=== PATIENT | female | born 1985 | race Two or more races ===

== ENCOUNTER → 2022-12-10 | Outpatient (CLI) | payer BC ==
[2022-12-10 10:44] LABS: Basophils # (auto) 0 10 ^3/uL (0-0.2); Basophils % (auto) 0.2 % (0.0-2.0); Eosinophils # (auto) 0.2 10 ^3/uL (0-0.8); Eosinophils % (auto) 2.2 % (0.0-7.0); Hematocrit 37.9 % (36.0-46.0); Lymphocytes # (auto) 2.7 10 ^3/uL (0.4-5.4); Lymphocytes % (auto) 35.2 % (10.0-50.0); Mean Corpuscular Hemoglobin 31.3 pg (28.0-32.0); Mean Corpuscular Hgb Conc. 34.3 g/dL (32.0-36.0); Mean Corpuscular Volume 91.1 fL (80.0-100.0); Monocytes # (auto) 0.6 10 ^3/uL (0-1.3); Monocytes % (auto) 8.4 % (0.0-12.0); Neutrophils # (auto) 4.1 10 ^3/uL (1.6-8.6); Red Blood Cells 4.15 10^6/uL (4.0-5.20); Red Cell Distribution Width 12.3 % (11.8-14.3); White Blood Cell 7.5 10^3/uL (4.4-10.8)
[2022-12-10 11:03] LABS: INR 1.05 (0.9-1.15); Partial Thromboplastin Time 28.5 SEC (24.5-34.5)
[2022-12-10 11:31] LABS: Alanine Aminotransferase 27 U/L (7-40); Albumin 4.5 g/dL (3.2-4.8); Alkaline Phosphatase 54 U/L (46-116); Aspartate Aminotransferase 16 U/L (13-40); BUN/Creatinine Ratio 8.2 (10.0-20.0); Bilirubin, Total 0.3 mg/dL (0.2-1.0); Blood Urea Nitrogen 5 mg/dL (9-23); Calcium 9.2 mg/dL (8.5-10.1); Chloride 107 mmol/L (98-107); Glucose 100 mg/dL (74-106); Potassium 3.9 mmol/L (3.5-5.1); Sodium 139 mmol/L (136-145); Total Protein 7.3 g/dL (5.7-8.2)
[2022-12-10 11:34] LABS: Thyroid Stimulating Hormone 1.4 uIU/mL (0.55-4.78)
[2022-12-10 12:05] LABS: Beta HCG, Quantitative 0.1 mIU/mL (1.5-4.2)
== END | disposition home or self-care (01) ==
LOC: LAB 10:13
PROVIDERS: ATTEND Obstetrics & Gynecology
DX: R87.1 Abnormal level of hormones in specimens from female genital organs (principal)
CPT/HCPCS: 36415; 80053; 83036; 84443; 84702; 85025; 85610; 85730

== ENCOUNTER → 2022-12-24 | Outpatient (CLI) | payer BC | END | disposition home or self-care (01) | LOC: LAB 09:45 | PROVIDERS: ATTEND Obstetrics & Gynecology | DX: N93.9 Abnormal uterine and vaginal bleeding, unspecified (principal) ==

== ENCOUNTER 2023-03-11 06:20 | Inpatient (IN) | payer BC ==
[2023-03-09 12:59] LABS: Basophils # (auto) 0 10 ^3/uL (0-0.2); Basophils % (auto) 0.2 % (0.0-2.0); Eosinophils # (auto) 0.1 10 ^3/uL (0-0.8); Eosinophils % (auto) 2.2 % (0.0-7.0); Hematocrit 38.2 % (36.0-46.0); Hemoglobin 12.7 g/dL (12.2-16.2); Lymphocytes # (auto) 2.4 10 ^3/uL (0.4-5.4); Lymphocytes % (auto) 34.2 % (10.0-50.0); Mean Corpuscular Hemoglobin 30.1 pg (28.0-32.0); Mean Corpuscular Hgb Conc. 33.3 g/dL (32.0-36.0); Mean Corpuscular Volume 90.3 fL (80.0-100.0); Monocytes # (auto) 0.5 10 ^3/uL (0-1.3); Monocytes % (auto) 7.1 % (0.0-12.0); Neutrophils # (auto) 3.9 10 ^3/uL (1.6-8.6); Neutrophils % (auto) 56.3 % (37.0-80.0); Red Blood Cells 4.23 10^6/uL (4.0-5.20); Red Cell Distribution Width 13.9 % (11.8-14.3); White Blood Cell 6.9 10^3/uL (4.4-10.8)
[2023-03-09 13:14] LABS: INR 1.04 (0.9-1.15); Partial Thromboplastin Time 28.9 SEC (24.5-34.5); Prothrombin Time 10.9 sec (9.3-11.8)
[2023-03-09 13:23] LABS: Urine Bacteria FEW /hpf (None Seen); Urine Blood TRACE /uL (Negative); Urine Clarity HAZY (Clear); Urine Color Yellow (Yellow); Urine Mucus FEW (None Seen); Urine Protein, UAD TRACE (Negative); Urine Specific Gravity 1.023 (1.001-1.035); Urine Urobilinogen Normal (Negative); Urine WBC 4 /hpf (0 - 5); Urine pH 6.5 (5.0-8.0)
[2023-03-09 14:18] LABS: Alanine Aminotransferase 19 U/L (7-40); Albumin 4.6 g/dL (3.2-4.8); Alkaline Phosphatase 57 U/L (46-116); Anion Gap 8 (5-15); Aspartate Aminotransferase 17 U/L (13-40); BUN/Creatinine Ratio 10.9 (10.0-20.0); Blood Urea Nitrogen 6 mg/dL (9-23); Calcium 8.9 mg/dL (8.7-10.4); Carbon Dioxide 21 mmol/L (20-30); Chloride 108 mmol/L (98-107); Potassium 3.6 mmol/L (3.5-5.1); Sodium 137 mmol/L (136-145)
[2023-03-09 14:19] LABS: Bilirubin, Total 0.3 mg/dL (0.2-1.0); Total Protein 7.4 g/dL (5.7-8.2)
[2023-03-09 14:24] LABS: Glucose 101 mg/dL (74-106)
[~2023-03-11] VITALS: Ht 149.9 cm; Wt 81.0 kg
[2023-03-11] MEDS ORDERED: LIDOCAINE 2% JELLY 11ml (GLYDO) ONE (06:51)
[2023-03-11] MEDS ORDERED: EPINEPHrine HCL 1 MG/1 ML AMP ONE (06:51)
[2023-03-11] MEDS ORDERED: BUPIVACAINE HCL 0 ML ONE (06:51)
[2023-03-11] MEDS ORDERED: ceFAZolin 2 GM/D5W100ml 100 ML IV ONE (06:51)
[2023-03-11] MEDS ORDERED: METHYLENE BLUE 0.5% 5MG/ML 10ml AMP IV ONE (06:55)
[2023-03-11] MEDS ORDERED: LIDOCAINE 1% HCL (LOCAL ANESTH.) INJ 20ML MDV ONE (06:55)
[2023-03-11] MEDS ORDERED: VASOPRESSIN 20 UNIT/ML ONE (06:56)
[2023-03-11] MEDS ORDERED: BUPIVACAINE HCL 50 ML ONE (06:56)
[2023-03-11] MEDS ORDERED: PROPOFOL 10 MG/ML 20 ML IV ONE (07:00)
[2023-03-11] MEDS ORDERED: ACETAMINOPHEN IV 1000 MG/100ML (10MG/ML) IV ONE (07:00)
[2023-03-11] MEDS ORDERED: LIDOCAINE 2% (LOCAL ANESTH.) PF 5ml SDV ONE (07:00)
[2023-03-11] MEDS ORDERED: GABAPENTIN 400 MG CAP PO ONE (07:00)
[2023-03-11] MEDS ORDERED: CELECOXIB 100 MG CAP PO ONE (07:00)
[2023-03-11] MEDS ORDERED: ONDANSETRON HCL 4 MG/2 ML VIAL ONE (07:00)
[2023-03-11] MEDS ORDERED: GLYCOPYRROLATE 0.2 MG/ML 1ML VIAL ONE (07:00)
[2023-03-11] MEDS ORDERED: DexAMETHasone SOD PHOS 10MG/1ML VIAL INJ ONE (07:01)
[2023-03-11] MEDS ORDERED: ROCURONIUM 10MG/ML 10ML VIAL IV ONE (07:01)
[2023-03-11] MEDS ORDERED: KETOROLAC TROMETH 30 MG/ML 1ML VIAL ONE (07:01)
[2023-03-11] MEDS ORDERED: SODIUM CHLORIDE LOCK 30 ML ONE (07:04)
[2023-03-11] MEDS ORDERED: LIDOCAINE W/ EPINEPHRINE 1% 20ML VIAL ONE (07:09)
[2023-03-11] MEDS ORDERED: NITROGLYCERIN 0.4 MG SL TAB SL PRN (07:15)
[2023-03-11] MEDS ORDERED: KETOROLAC TROMETH 30 MG/ML 1ML VIAL IV PRN (07:15)
[2023-03-11] MEDS ORDERED: MORPHINE SULFATE INJ 2 MG/ml SYRG IV PRN (07:15)
[2023-03-11] MEDS ORDERED: ceFAZolin 1GM/50ML 50 ML IV ONE (07:15)
[2023-03-11] MEDS ORDERED: HYDROmorphone HCL 2 MG/ML VL/or syr IV PRN (07:15)
[2023-03-11] MEDS ORDERED: ONDANSETRON HCL 4 MG/2 ML VIAL IV PRN ×2 (07:15→10:00)
[2023-03-11] MEDS ORDERED: fentaNYL CITRATE 100 MCG/2 ML VL ONE (07:24)
[2023-03-11] MEDS ORDERED: SUGAMMADEX 200mg/2ml Vial (100MG/ML) IV ONE (07:26)
[2023-03-11] MEDS ORDERED: SODIUM CHLORIDE LOCK 10 ML ONE ×2 (08:06→08:08)
[2023-03-11] MEDS ORDERED: PHENYLEPHRINE HCL 10 MG/ML VL ONE (08:06)
[2023-03-11 09:45] VITALS: O2SAT 100
[2023-03-11] MEDS ORDERED: FLUMAZENIL 0.1 MG/ML INJ 10ML MDV IV PRN (10:00)
[2023-03-11] MEDS ORDERED: oxyCODONE HCL 5MG TAB PO PRN (10:00)
[2023-03-11] MEDS ORDERED: LABETALOL HCL 5 MG/ML 4ML SYRINGE IV PRN (10:00)
[2023-03-11] MEDS ORDERED: NALOXONE HCL 0.4 MG/ML VIAL IV PRN (10:00)
[2023-03-11] MEDS ORDERED: ePHEDrine SULFATE 50 MG/ML AMP IV PRN (10:00)
[2023-03-11] MEDS ORDERED: hydrALAZINE HCL 20 MG/ML VL IV PRN (10:00)
[2023-03-11] MEDS ORDERED: fentaNYL CITRATE 100 MCG/2 ML VL IV PRN (10:00)
[2023-03-11] MEDS: HYDROmorphone HCL 2 MG/ML VL/or syr IV PRN ×4 (10:05→10:35)
[2023-03-11 12:54] VITALS: PULSE 73; RESP 18; O2SAT 96
[2023-03-11] MEDS: LACTATED RINGER'S 1,000 ML IV SCH ×2 (13:23→15:44)
[2023-03-11 16:00] VITALS: BP 112/66; PULSE 67; RESP 16; TEMP 97.8; O2SAT 94
[2023-03-11] MEDS: OXYCODONE W/ ACETAMINOPHEN 5/325MG TABLET PO PRN (17:02)
[2023-03-11 19:54] LABS: Basophils # (auto) 0 10 ^3/uL (0-0.2); Eosinophils # (auto) 0 10 ^3/uL (0-0.8); Hemoglobin 11.1 g/dL (12.2-16.2); Lymphocytes # (auto) 0.7 10 ^3/uL (0.4-5.4); Lymphocytes % (auto) 6.7 % (10.0-50.0); Mean Corpuscular Hemoglobin 29.6 pg (28.0-32.0); Mean Corpuscular Hgb Conc. 32.8 g/dL (32.0-36.0); Mean Corpuscular Volume 90.3 fL (80.0-100.0); Monocytes # (auto) 0.2 10 ^3/uL (0-1.3); Monocytes % (auto) 1.5 % (0.0-12.0); Neutrophils # (auto) 10.1 10 ^3/uL (1.6-8.6); Neutrophils % (auto) 91.8 % (37.0-80.0); Red Blood Cells 3.76 10^6/uL (4.0-5.20); Red Cell Distribution Width 14.1 % (11.8-14.3)
[2023-03-11 22:00] VITALS: BP 123/70; PULSE 74; RESP 18; TEMP 98.6; O2SAT 93
[2023-03-12] VITALS (7 sets, daily range): BP systolic 100–115; BP diastolic 38–74; PULSE 55–90; RESP 17–19; TEMP 97.9–98.6; O2SAT 91–98
[2023-03-12] MEDS: LACTATED RINGER'S 1,000 ML IV SCH ×4 (00:04→21:23)
[2023-03-12] MEDS: OXYCODONE W/ ACETAMINOPHEN 5/325MG TABLET PO PRN ×3 (00:06→21:40)
[2023-03-12 06:54] LABS: Basophils # (auto) 0 10 ^3/uL (0-0.2); Eosinophils # (auto) 0 10 ^3/uL (0-0.8); Hematocrit 31.2 % (36.0-46.0); Hemoglobin 10.3 g/dL (12.2-16.2); Lymphocytes % (auto) 8.5 % (10.0-50.0); Mean Corpuscular Hemoglobin 29.9 pg (28.0-32.0); Mean Corpuscular Hgb Conc. 33.1 g/dL (32.0-36.0); Mean Corpuscular Volume 90.5 fL (80.0-100.0); Monocytes # (auto) 0.7 10 ^3/uL (0-1.3); Monocytes % (auto) 6.5 % (0.0-12.0); Neutrophils # (auto) 9.7 10 ^3/uL (1.6-8.6); Red Blood Cells 3.45 10^6/uL (4.0-5.20); Red Cell Distribution Width 14.5 % (11.8-14.3); White Blood Cell 11.4 10^3/uL (4.4-10.8)
[2023-03-13 05:09] VITALS: BP 106/71; PULSE 77; RESP 18; TEMP 98.5; O2SAT 96
[2023-03-13] MEDS: LACTATED RINGER'S 1,000 ML IV SCH ×3 (07:15→21:47)
[2023-03-13 08:58] VITALS: BP 119/65; PULSE 64; RESP 18; TEMP 98.4; O2SAT 99
[2023-03-13] MEDS ORDERED: BISACODYL 10 MG RECT SUPP PR PRN (09:00)
[2023-03-13] MEDS: DOCUSATE SOD 100 MG CAP PO PRN ×2 (09:31→21:47)
[2023-03-13] MEDS: OXYCODONE W/ ACETAMINOPHEN 5/325MG TABLET PO PRN ×2 (09:34→18:35)
[2023-03-13 13:00] VITALS: BP 115/71; PULSE 85; RESP 14; TEMP 98; O2SAT 92
[2023-03-13 16:58] VITALS: BP 104/68; PULSE 81; RESP 16; TEMP 98.3; O2SAT 95
[2023-03-13 20:00] VITALS: PULSE 79; RESP 22; O2SAT 94
[2023-03-13 22:00] VITALS: BP 111/69; PULSE 79; RESP 22; TEMP 98.9; O2SAT 94
[2023-03-14 05:00] VITALS: BP 145/74; PULSE 66; RESP 20; TEMP 99; O2SAT 94
[2023-03-14] MEDS: LACTATED RINGER'S 1,000 ML IV SCH (05:55)
[2023-03-14] MEDS ORDERED: PERCOT PO (07:49)
[2023-03-14] MEDS ORDERED: DOCU-265 PO (07:49)
[2023-03-14] MEDS: OXYCODONE W/ ACETAMINOPHEN 5/325MG TABLET PO PRN (07:49)
[2023-03-14] MEDS ORDERED: IBUP-1455 PO (07:49)
[2023-03-14 08:32] VITALS: BP 115/76; PULSE 74; RESP 21; TEMP 97.9; O2SAT 98
[2023-03-14] MEDS: DOCUSATE SOD 100 MG CAP PO PRN (10:36)
[2023-03-14 11:05] LABS: Hemoglobin 10.3 g/dL (12.2-16.2)
[2023-03-14 12:48] VITALS: BP 111/69; PULSE 75; RESP 20; TEMP 97.8; O2SAT 94
== END 2023-03-14 14:05 | disposition home or self-care (01) | DRG 743 ==
LOC: SUR 06:20 → OVERFLOW 07:11 → EAST 12:45
PROVIDERS: ADMIT Internal Medicine; ATTEND Obstetrics & Gynecology
PROC: 0UT10ZZ Resection of Left Ovary, Open Approach (ICD-10-PCS; 2023-03-11)
PROC: 0UT50ZZ Resection of Right Fallopian Tube, Open Approach (ICD-10-PCS; 2023-03-11)
PROC: 0TJB8ZZ Inspection of Bladder, Via Natural or Artificial Opening Endoscopic (ICD-10-PCS; 2023-03-11)
PROC: 0UT60ZZ Resection of Left Fallopian Tube, Open Approach (ICD-10-PCS; 2023-03-11)
PROC: 0UT90ZZ Resection of Uterus, Open Approach (ICD-10-PCS; principal; 2023-03-11 07:34)
DX: D25.9 Leiomyoma of uterus, unspecified (principal); N83.202 Unspecified ovarian cyst, left side; N92.0 Excessive and frequent menstruation with regular cycle; Z90.49 Acquired absence of other specified parts of digestive tract
CPT/HCPCS: 36415; 80053; 81001; 81025; 84702; 85014; 85018; 85025; 85610; 85730; 86850; 86900; 86901; 97163; G0378; J0131; J0171; J1100; J1885; J2001; J2405; J2704; J3490

== ENCOUNTER 2025-02-05 22:21 | Emergency (ER) | payer BC ==
[~2025-02-05] VITALS: Ht 149.9 cm; Wt 75.2 kg
[~2025-02-05 22:21] MED LIST: DOCU-265 PO; IBUP-1455 PO; PERCOT PO
[2025-02-05 22:25] VITALS: BP 139/92; PULSE 83; RESP 20; TEMP 97.7; O2SAT 96
== END 2025-02-06 04:10 | disposition left against medical advice (07) ==
LOC: ER 22:21
DX: R10.A2 Flank pain, left side (principal); Z53.21 Procedure and treatment not carried out due to patient leaving prior to being seen by health care provider